=== PATIENT | male | born 1990 | race Two or more races ===

== ENCOUNTER 2016-12-30 11:25 | Emergency (ER) | payer SELFPAY ==
[2016-12-30] MEDS ORDERED: NORMAL SALINE 1000 ML 1,000 ML IV ONE (12:01)
[2016-12-30] MEDS ORDERED: METOCLOPRAMIDE HCL INJ/PF 10 MG/2 ML SDV IV ONE (12:01)
--- NOTE | 2016-12-30 12:05 | ER Document Report ---
Doctor's Note Notes: 12/30/16 12:02 26-year-old male history of gastritis similar previous episodes of uncontrollable nausea and vomiting presents with complaints of nausea vomiting since yesterday. Patient denies any fevers notes the abdominal pain he is having is secondary to vomiting episodes. I have greeted and performed a rapid initial assessment of this patient. A comprehensive ED assessment and evaluation of the patient, analysis of test results and completion of the medical decision making process will be conducted by additional ED providers. PHYSICAL EXAMINATION: GENERAL: Well-appearing, well-nourished actively dry heaving diaphoretic HEAD: Atraumatic, normocephalic. EYES: Pupils equal round extraocular movements intact, conjunctiva are normal. ENT: Nares patent NECK: Normal range of motion LUNGS: No respiratory distress Musculoskeletal: Normal range of motion NEUROLOGICAL: Normal speech, normal gait. PSYCH: Normal mood, normal affect. SKIN: Warm, Dry, normal turgor, no rashes or lesions noted.
[2016-12-30] MEDS ORDERED: MORPHINE SULFATE 10 MG/ML INJ IV ONE (12:38)
--- NOTE | 2016-12-30 12:46 | ER Document Report ---
ED GI/ - General Chief Complaint: Abdominal Pain Stated Complaint: VOMITING/ABDOMINAL PAIN Information source: Patient Notes: Patient is a 26-year-old male with past medical history of "gastritis" with multiple episodes of cyclical vomiting who presents today with the onset yesterday of multiple bouts of nonbloody vomiting. He states 2-3 bouts of diarrhea. He states some abdominal epigastric nonradiating "cramping" without aggravating or relieving factors, that started after vomiting. Patient denies any flank pain or dysuria. Patient for these episodes has had an ultrasound, a CT scan of the abdomen, and has seen a manager card. Patient states secondary to head trauma when he was playing football they also performed a CT scan of his head which was unremarkable. He states that he was doing well after the studies and did not follow-up for an endoscopy. Patient does admit to some continued marijuana usage. His previous episode was thought possibly to be secondary to marijuana. Patient however states one of these episodes was when he was "marijuana free" for a period of time. He therefore does not believe it is secondary to marijuana usage and therefore continues to smoke it. TRAVEL OUTSIDE OF THE [place] IN LAST 30 DAYS: No - HPI Patient complains to provider of: Abdominal pain Onset: Other - See above Timing/Duration: Gradual Quality of pain: Other - See above Severity at maximum: Moderate Severity in ED: Moderate Pain Level: 2 Location: Epigastric Sexual history: Active Associated symptoms: Other - See above Exacerbated by: Denies Relieved by: Denies Similar symptoms previously: No Recently seen / treated by doctor: No - Related Data Allergies/Adverse Reactions: No Known Allergies Allergy (Verified 12/30/16 11:43) Past Medical History - General Information source: Patient - Social History Smoking Status: Unknown if Ever Smoked Cigarette use (# per day): No Chew tobacco use (# tins/day): No Smoking Education Provided: No Frequency of alcohol use: None Family History: Reviewed & Not Pertinent Patient has suicidal ideation: No Patient has homicidal ideation: No Renal/ Medical History: Denies: Hx Peritoneal Dialysis Psychiatric Medical History: Reports: Hx Anxiety Surgical Hx: Negative - Immunizations Hx Diphtheria, Pertussis, Tetanus Vaccination: Yes Review of Systems - Review of Systems Constitutional: denies: Fever EENT: denies: Eye discharge, Nose discharge Cardiovascular: denies: Chest pain, Palpitations, Dyspnea Respiratory: denies: Short of breath Gastrointestinal: Diarrhea, Vomiting Genitourinary: denies: Dysuria Musculoskeletal: denies: Leg swelling Skin: Other - no hives. denies: Rash Neurological/Psychological: Other - no slurred speech -: Yes All other systems reviewed and negative Physical Exam - Vital signs Vitals: Temp Pulse Resp BP Pulse Ox 97.5 F 56 L 18 139/95 H 100 12/30/16 11:30 12/30/16 11:30 12/30/16 11:30 12/30/16 11:30 12/30/16 11:30 Interpretation: Normal Notes: Reviewed vital signs and nursing note as charted by RN. CONSTITUTIONAL: Alert and oriented and responds appropriately to questions. Well -appearing; well-nourished HEAD: Normocephalic; atraumatic EYES: Sclerae non-icteric ENT: Moist mucous membranes NECK: Supple without meningismus; non-tender; no cervical lymphadenopathy, no masses CARD: Regular rate and rhythm; no murmurs, no clicks, no rubs, no gallops; symmetric distal pulses RESP: Normal chest excursion without splinting or tachypnea; breath sounds clear and equal bilaterally; no wheezes, no rhonchi, no rales ABD/GI: Normal bowel sounds; non-distended; soft, very minimally tender to palpation to just the epigastric region without any lower abdominal quadrant tenderness, no rebound, no guarding; no palpable organomegaly or masses BACK: The back appears normal and is non-tender to palpation, there is no CVA tenderness EXT: Normal ROM in all joints; non-tender to palpation; no cyanosis, no effusions, no edema SKIN: Normal color for age and race; warm; dry; good turgor; capillary refill < 2 seconds; no acute lesions noted NEURO: Moves all extremities equally; Motor and sensory function intact PSYCH: The patient's mood and manner are appropriate. Grooming and personal hygiene are appropriate. - General General appearance: Alert - Respiratory Respiratory status: No respiratory distress Chest status: Nontender Breath sounds: Normal Chest palpation: Normal - Cardiovascular Rhythm: Regular Heart sounds: Normal auscultation Murmur: No - Back Back: Normal, Nontender - Extremities General upper extremity: Normal inspection, Nontender, Normal color, Normal ROM , Normal temperature General lower extremity: Normal inspection, Nontender, Normal color, Normal ROM , Normal temperature, Normal weight bearing. No: Gaurang's sign - Neurological Neuro grossly intact: Yes Cognition: Normal Orientation: AAOx4 Norman Coma Scale Eye Opening: Spontaneous Burns Coma Scale Verbal: Oriented Burns Coma Scale Motor: Obeys Commands Norman Coma Scale Total: 15 Speech: Normal Motor strength normal: LUE, RUE, LLE, RLE Sensory: Normal - Psychological Associated symptoms: Normal affect, Normal mood - Skin Skin Temperature: Warm Skin Moisture: Dry Skin Color: Normal Course - Re-evaluation Re-evalutation: 12/30/16 12:44 Given the history and physical examination, I will obtain a three-way x-ray of the abdomen, order a liver panel and lipase. We'll provide a one-time dose of morphine medication as well as antinausea medications and fluid resuscitation. Patient's abdomen is fairly benign at this time. 12/30/16 13:31 Labs as recorded. Fluid is infusing. Patient denies any pain currently. The nausea medication has been very helpful according to the patient. I do not believe urine drug screen is necessary to obtain given that the patient has admitted to marijuana usage. 12/30/16 14:18 Patient's vomiting has improved. He still denies any abdominal pain. I've had a long discussion with the patient about making sure he refrains from marijuana usage. He has a manager card that he states he can follow-up with. I will provide nausea medications and start the patient on an antiacid medication. Strict return precautions have been explained and understood. - Vital Signs Vital signs: Temp Pulse Resp BP Pulse Ox 97.5 F 56 L 18 139/95 H 100 12/30/16 11:30 12/30/16 11:30 12/30/16 11:30 12/30/16 11:30 12/30/16 11:30 - Laboratory Result Diagrams: 12/30/16 12:20 12/30/16 12:20 Laboratory results interpreted by me: 12/30/16 12/30/16 12:20 12:20 WBC 12.9 H Seg Neutrophils % 79.6 H Absolute Neutrophils 10.3 H Sodium 146.2 H Glucose 119 H Calcium 10.4 H Discharge - Discharge Clinical Impression: Vomiting Qualifiers: Vomiting type: unspecified Vomiting Intractability: non-intractable Nausea presence: with nausea Qualified Code(s): R11.2 - Nausea with vomiting, unspecified Disposition: HOME, SELF-CARE Additional Instructions: Come back immediately with any return of vomiting, fevers, abdominal pain, diarrhea, or any other acute problems. Please make sure that you follow-up with the manager card as we have discussed. Please stop the marijuana usage as this may contribute to your symptoms. Prescriptions: Ondansetron HCl [Zofran 4 mg Tablet] 1 - 2 tab PO Q4H PRN #10 tablet PRN Reason: Sucralfate 1 gm PO QID #40 ml
[2016-12-30 13:03] LABS: ABSOLUTE BASOPHILS # (AUTO) 0.1 10^3/uL (0.0-0.2); ABSOLUTE EOSINOPHILS # (AUTO) 0.2 10^3/uL (0.0-0.6); ABSOLUTE LYMPHOCYTES (AUTO) 1.9 10^3/uL (0.5-4.7); ABSOLUTE MONOCYTES (AUTO) 0.5 10^3/uL (0.1-1.4); ABSOLUTE NEUT (AUTO) 10.3 10^3/uL (1.7-8.2); BASOPHILS % (AUTO) 0.5 % (0-2); EOSINOPHILS % (AUTO) 1.3 % (0-6); HEMATOCRIT 47.6 % (37.9-51.0); HEMOGLOBIN 16.1 g/dL (13.5-17.0); HGB HCT DIFFERENCE 0.7; LYMPHOCYTES % (AUTO) 14.8 % (13-45); MEAN CORPUSCULAR HEMOGLOBIN 29.7 pg (27.0-33.4); MEAN CORPUSCULAR HGB CONC 33.8 g/dL (32.0-36.0); MEAN CORPUSCULAR VOLUME 88 fl (80-97); MONOCYTES % (AUTO) 3.8 % (3-13); RED CELL DISTRIBUTION WIDTH 13.3 % (11.5-14.0); SEGMENTED NEUTROPHILS % (AUTO) 79.6 % (42-78); WHITE BLOOD COUNT 12.9 10^3/uL (4.0-10.5)
[2016-12-30 13:24] LABS: ALANINE AMINOTRANSFERASE 37 U/L (21-72); ALBUMIN 4.8 g/dL (3.5-5.0); ALKALINE PHOSPHATASE 59 U/L (38-126); ANION GAP 16 (5-19); ASPARTATE AMINO TRANSFERASE 22 U/L (17-59); BILIRUBIN,DIRECT 0.4 mg/dL (0.0-0.4); BILIRUBIN,TOTAL 0.6 mg/dL (0.2-1.3); BLOOD UREA NITROGEN 11 mg/dL (7-20); CALCIUM 10.4 mg/dL (8.4-10.2); CARBON DIOXIDE 23 mmol/L (22-30); CHLORIDE 107 mmol/L (98-107); CREATININE RESULT 0.88 mg/dL (0.52-1.25); GLUCOSE 119 mg/dL (75-110); LIPASE 131.4 U/L (23-300); POTASSIUM 4.7 mmol/L (3.6-5.0); SODIUM 146.2 mmol/L (137-145); TOTAL PROTEIN 7.9 g/dL (6.3-8.2)
[2016-12-30 15:00] VITALS: BP 127/80
== END 2016-12-30 14:53 | disposition home or self-care (01) ==
LOC: ER 11:25
DX: R11.2 Nausea with vomiting, unspecified (principal); R19.7 Diarrhea, unspecified; R10.13 Epigastric pain
CPT/HCPCS: 99284; 96361; 96374; 96375; 36415; 83690; 85025; 80053; 74022; J2765; J2270; J7030

== ENCOUNTER 2017-01-14 09:54 | Day surgery (SDC) | payer SELFPAY ==
[~2017-01-14 09:54] MED LIST: DIPHENHYDRAMINE HCL 50 MG/ML VIAL ONE; EPINEPHRINE INJ 1 MG/10 ML DISP.SYRIN ONE; FENTANYL CITRATE INJ/PF 100 MCG/2 ML AMPUL ONE; FLUMAZENIL INJ 0.5 MG/5 ML VIAL IV ONE; GLUCAGON,HUMAN RECOMB 1 MG INJ ONE; NALOXONE HCL INJ/PF 0.4 MG/1 ML SDV ONE; ONDANSETRON HCL INJ/PF 4 MG/2 ML SDV ONE
[2017-01-14] MEDS: MIDAZOLAM 2 MG/2 ML INJ ONE ×3 (10:02→10:08)
--- NOTE | 2017-01-14 10:18 | Operative Report ---
Operative Report DATE OF SURGERY: 01/14/17 Operative Report: The risks benefits and alternatives of the procedure explained to the patient in detail and informed consent is obtained that GIF Olympus video scope was inserted into the patient's mouth and hypopharynx the esophagus is identified intubated and insufflated the scope was then advanced through the esophagus stomach and duodenum retroflexion maneuver is done the esophagus stomach and first and second portions of the duodenum examined PREOPERATIVE DIAGNOSIS: Nausea vomiting rule out gastric colon obstruction POSTOPERATIVE DIAGNOSIS: Gastritis, duodenitis status post biopsy rule out Helicobacter pylori OPERATION: EGD with biopsy SURGEON: CARINE PINK ANESTHESIA: Moderate Sedation - 6 mg of Versed, 100 g of fentanyl. 4 mg of Zofran. Conscious sedation monitoring tapped any masses. TISSUE REMOVED OR ALTERED: Gastric specimen obtained COMPLICATIONS: None. ESTIMATED BLOOD LOSS: none. INTRAOPERATIVE FINDINGS: As noted above. PROCEDURE: Patient tolerated procedure well. No immediate postprocedure complications are noted. Patient discharged in good condition. Discharge date 01/14/2017. Discharge diet: Regular. Discharge activity: Regular. 2-3 week follow-up to discuss findings. We'll await on biopsies and treat for Helicobacter pylori if necessary. If negative consider gallbladder work up.
[2017-01-14 11:51] VITALS: BP 125/76
== END 2017-01-14 11:45 | disposition home or self-care (01) ==
LOC: END 09:54
PROVIDERS: ATTEND Internal Medicine Gastroenterology
PROC: 0DB68ZX Excision of Stomach, Via Natural or Artificial Opening Endoscopic, Diagnostic (ICD-10-PCS; principal; 2017-01-14 09:30)
DX: K29.50 Unspecified chronic gastritis without bleeding (principal); K29.80 Duodenitis without bleeding; Z87.11 Personal history of peptic ulcer disease; Z72.0 Tobacco use; Z79.899 Other long term (current) drug therapy
CPT/HCPCS: 43239; 88305 ×2; J2250; J3010; J2405; J0171; J1200; J1610; J2310; J3490

== ENCOUNTER 2017-06-08 21:39 | Emergency (ER) | payer SELFPAY ==
[2017-06-08 22:04] VITALS: BP 146/98
== END 2017-06-08 23:50 | disposition left against medical advice (07) ==
LOC: ER 21:39
DX: Z53.21 Procedure and treatment not carried out due to patient leaving prior to being seen by health care provider (principal)